=== PATIENT | male | born 1975 | race Two or more races ===

== ENCOUNTER 2018-12-05 14:00 | Emergency (ER) | payer OTHER ==
[~2018-12-05] VITALS: Ht 170.2 cm; Wt 90.7 kg
[2018-12-05] MEDS ORDERED: SODIUM CHLORIDE 0.9% 1,000 ML IVB ONE (15:07)
[2018-12-05] MEDS ORDERED: DEXAMETHASONE IV ONE (15:15)
[2018-12-05] MEDS ORDERED: KETOROLAC TROMETH 30 MG/ML 1ML VIAL IM ONE (15:15)
[2018-12-05] MEDS ORDERED: CLINDAMYCIN 900MG IV 50 ML IV ONE (15:15)
[2018-12-05] MEDS ORDERED: D5W 5% IV ONE (15:15)
[2018-12-05 15:45] LABS: Basophils # (auto) 0.1 uL; Basophils % (auto) 0.5 % (0.0-2.0); Eosinophils # (auto) 0 uL; Eosinophils % (auto) 0.4 % (0.0-7.0); Hemoglobin 15.7 g/dL (13.5-17.5); Lymphocytes # (auto) 1.5 uL; Lymphocytes % (auto) 13.9 % (10.0-50.0); Mean Corpuscular Hemoglobin 31.7 pg (28.0-32.0); Mean Corpuscular Hgb Conc. 34.8 g/dL (32.0-36.0); Mean Corpuscular Volume 91.1 fL (80.0-100.0); Monocytes # (auto) 0.7 uL; Monocytes % (auto) 6.9 % (0.0-12.0); Neutrophils # (auto) 8.2 uL; Neutrophils % (auto) 78.3 % (37.0-80.0); Platelet Count (auto) 207 10^3/uL (140-450); Red Blood Cells 4.94 10^6/uL (4.5-5.90); White Blood Cell 10.5 10^3/uL (4.4-10.8)
[2018-12-05 16:01] LABS: Albumin 3.9 g/dL (3.4-5.0); BUN/Creatinine Ratio 9.6; Calcium 8.8 mg/dL (8.5-10.1)
[2018-12-05 16:04] LABS: Potassium 4.3 mmol/L (3.5-5.1); Total Protein 8.3 g/dL (6.4-8.2)
[2018-12-05 17:21] VITALS: BP 124/73
== END 2018-12-05 17:30 ==
LOC: ER 14:00 → EEVIPCON 14:00 → ER 17:30
DX: J36 Peritonsillar abscess (principal)
CPT/HCPCS: 36415; 80053; 85025; 96365; 96366; 96368; 99283; J1100; J1885; J3490; J7060